=== PATIENT | male | born 1995 | race American Indian/Alaskan Native ===

== ENCOUNTER 2016-10-08 06:49 | Emergency (ER) | payer OTHER ==
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
[2016-10-08] MEDS ORDERED: Propofol 200 MG/20 ML SDV IV ONE (07:07)
[2016-10-08] MEDS ORDERED: Succinylcholine 200 MG/10 ML MDV IV ONE (07:07)
[2016-10-08] MEDS ORDERED: Rocuronium 50 MG/5 ML Vial IV ONE (07:07)
[2016-10-08 07:20] LABS: CHLORIDE,CL 108 mmol/L (101-111); SODIUM,NA 143 mmol/L (135-145)
[2016-10-08] MEDS ORDERED: Midazolam 1 MG/ML 2 ML SDV ONE ×2 (07:46)
[2016-10-08] MEDS ORDERED: Iopamidol 612 MG/ML 100 ML Bottle IVPUSH ONE (08:00)
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
== END 2016-10-08 09:06 | disposition other institution (70) ==
LOC: DL.ED 06:49
DX: S81.012A Laceration without foreign body, left knee, initial encounter (principal); S81.011A Laceration without foreign body, right knee, initial encounter; S31.010A Laceration without foreign body of lower back and pelvis without penetration into retroperitoneum, initial encounter; S20.229A Contusion of unspecified back wall of thorax, initial encounter; S20.312A Abrasion of left front wall of thorax, initial encounter; V89.2XXA Person injured in unspecified motor-vehicle accident, traffic, initial encounter
CPT/HCPCS: 31500; 36415; 51702; 70450; 71010; 71260; 72125; 72128; 72131; 74177; 80053; 80305; 81001; 82150; 83690; 85025; 96360; 96361; 99285; G0480; Q9967; J0330; J2250; J2704

== ENCOUNTER 2016-11-07 01:16 | Emergency (ER) | payer OTHER ==
[2016-11-07] MEDS ORDERED: Lidocaine 1% 30 ML SDV INJECT ONE (01:22)
[2016-11-07 01:24] VITALS: BP 136/90
--- NOTE | 2016-11-07 01:28 | EDM.PDOC ---
ED HPI GENERAL MEDICAL PROBLEM - General Chief Complaint: Laceration Stated Complaint: HAND GASHED OPEN Time Seen by Provider: 11/07/16 01:23 Source of Information: Reports: Patient History Limitations: Reports: No Limitations - History of Present Illness INITIAL COMMENTS - FREE TEXT/NARRATIVE: cut TUNA PURSE SEINER Treatments TUNA PURSE SEINER: Reports: Dressing(s) Left 2-Index finger Pain Score (Numeric/FACES): 3 - Related Data Allergies Allergy/AdvReac Type Severity Reaction Status Date / Time No Known Allergies Allergy Verified 11/07/16 01:20 Home Meds: Home Meds . [No Known Home Meds] 07/11/13 [History] Past Medical History - Past Health History Medical/Surgical History: Denies Medical/Surgical History Social & Family History - Family History Family Medical History: Noncontributory - Tobacco Use Smoking Status *Q: Never Smoker - Alcohol Use Days Per Week of Alcohol Use: 1 Number of Drinks Per Day: 2 Total Drinks Per Week: 2 - Recreational Drug Use Recreational Drug Use: No ED ROS GENERAL - Review of Systems Review Of Systems: ROS reveals no pertinent complaints other than HPI. ED EXAM, SKIN/RASH Exam: See Below Exam Limited By: No Limitations General Appearance: Alert, WD/WN, No Apparent Distress Ears: Hearing Grossly Normal Throat/Mouth: Normal Voice, No Airway Compromise Head: Atraumatic Neck: Non-Tender, Full Range of Motion Respiratory/Chest: No Respiratory Distress Cardiovascular: Regular Rate, Rhythm GI/Abdominal: Soft, Non-Tender Extremities: Other (left index lac', flexion-extension intact, snesation intact) Neurological: Alert, Oriented, Normal Cognition, Normal Gait, No Motor/Sensory Deficits Psychiatric: Normal Affect, Normal Mood Skin: Warm, Dry Location, Skin: Upper Extremity, Left Lymphatic: No Adenopathy ED SKIN PROCEDURES - Laceration/Wound Repair Left Finger Lac/wound length in cm: 2 (index) Appearance: subcutaneous, linear, clean Distal NVT: neuro & vascular intact, no tendon injury Anesthetic Type: local Local anesthesia - Lidocaine (Xylocaine): 1% plain Local anesthetic volume: 5cc Skin prep: chlorhexidine (hibiciens) Saline irrigation (cc's): 20 Exploration/Debridement/Repair: wound explored, no foreign material found Closed with: sutures Suture size: 3-0 Suture type: interrupted Sterile dressing applied: nurse Tetanus status addressed: Yes Complications: No Course - Vital Signs Last Recorded V/S: Last Vital Signs Temp 36.6 C 11/07/16 01:23 Pulse 97 11/07/16 01:23 Resp 20 11/07/16 01:23 BP 136/90 11/07/16 01:23 Pulse Ox 99 11/07/16 01:23 - Orders/Labs/Meds Orders: Active Orders 24 hr Category Date Time Status Acetaminophen/HYDROcodone [[place] 325-10 MG] Med 11/07/16 01:52 Once 1 tab PO ONETIME ONE Meds: Medications Discontinued Medications Generic Name Dose Route Start Last Admin Trade Name Charmaine PRN Reason Stop Dose Admin Lidocaine HCl 30 ml 11/07/16 01:22 Xylocaine-Mpf 1% INJECT 11/07/16 01:23 ONETIME ONE Departure - Departure Time of Disposition: 01:53 Disposition: Home, Self-Care 01 Condition: good Clinical Impression: Finger laceration Qualifiers: Encounter type: initial encounter Qualified Code(s): S61.219A - Laceration without foreign body of unspecified finger without damage to nail, initial encounter - Discharge Information Instructions: Stitches, Juan David, or Adhesive Wound Closure, [id number] Forms: ED Department Discharge Additional Instructions: 1) keep clean dry covered 2) wound check 2 days 3) suture removal 10 days 4) must recheck if have problem in bending or straightening finger - My Orders Last 24 Hours: My Active Orders 11/07/16 01:52 Acetaminophen/HYDROcodone [[place] 325-10 MG] 1 tab PO ONETIME ONE - Assessment/Plan Last 24 Hours: My Active Orders 11/07/16 01:52 Acetaminophen/HYDROcodone [[place] 325-10 MG] 1 tab PO ONETIME ONE
[2016-11-07] MEDS ORDERED: Acetaminophen/HYDROcodone 325-10 MG Tab PO ONE (01:52)
== END 2016-11-07 02:07 | disposition home or self-care (01) ==
LOC: DL.ED 01:16
DX: S61.211A Laceration without foreign body of left index finger without damage to nail, initial encounter (principal); X58.XXXA Exposure to other specified factors, initial encounter
CPT/HCPCS: 12001; 99283; A9270

== ENCOUNTER 2018-02-07 00:51 | Emergency (ER) | payer OTHER ==
[2018-02-07 01:28] LABS: ANION GAP 12.7; CHLORIDE,CL 105 mmol/L (101-111); SODIUM,NA 141 mmol/L (135-145)
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
[2018-02-07 03:10] VITALS: BP 141/73
--- NOTE | 2018-02-11 10:40 | EKG ---
02/07/2018 - ERI KIDD - TIME: 1:15 a.m. FINDINGS: Sinus rhythm at 91, inferior Q-waves, probably normal variation. [facility] /[id number]
== END 2018-02-07 03:06 | disposition home or self-care (01) ==
LOC: DL.ED 00:51
DX: S06.0X9A Concussion with loss of consciousness of unspecified duration, initial encounter (principal); S80.01XA Contusion of right knee, initial encounter; S80.02XA Contusion of left knee, initial encounter; S40.811A Abrasion of right upper arm, initial encounter; V59.9XXA Occupant (driver) (passenger) of pick-up truck or van injured in unspecified traffic accident, initial encounter
CPT/HCPCS: 36415; 70450; 71250; 72125; 73560; 74176; 80053; 85025; 85610; 85730; 86850; 86900; 86901; 99285; G0480

== ENCOUNTER 2021-11-28 20:16 | Emergency (ER) | payer OTHER ==
[2021-11-28] MEDS ORDERED: Sodium Chloride 0.9% 1,000 ML IV ONE (20:26)
[2021-11-28] MEDS ORDERED: Ketorolac 30 MG/ML SDV IVPUSH ONE (20:33)
[2021-11-28] MEDS ORDERED: Ondansetron 4 MG/2 ML SDV IVPUSH ONE (20:33)
[2021-11-28 21:03] LABS: CHLORIDE,CL 99 mmol/L (98-107); SODIUM,NA 138 mmol/L (136-145)
[2021-11-28 21:08] LABS: ESTIMATED GFR > 60
[2021-11-28] MEDS ORDERED: fentaNYL 100 MCG/2 ML SDV IVPUSH ONE (21:18)
[2021-11-28 21:53] VITALS: BP 129/61; PULSE 76
== END 2021-11-28 23:06 ==
LOC: DL.ED 20:16
DX: S06.5X9A Traumatic subdural hemorrhage with loss of consciousness of unspecified duration, initial encounter (principal); S06.6X9A Traumatic subarachnoid hemorrhage with loss of consciousness of unspecified duration, initial encounter; Z20.822 Contact with and (suspected) exposure to COVID-19; W18.30XA Fall on same level, unspecified, initial encounter
CPT/HCPCS: 36415; 70450; 72125; 80053; 80307; 82150; 83605; 85025; 86618; 86788; 87040; 96361; 96374; 96375; 99285; 99285-25; J1885; J2405; J3010; J7030; U0002

== ENCOUNTER 2021-12-01 18:44 | Emergency (ER) | payer OTHER ==
[2021-12-01 19:19] VITALS: BP 132/83; PULSE 60
[2021-12-01 20:01] LABS: AMPHETAMINES,URINE NEGATIVE (NEGATIVE); BARBITURATES,URINE NEGATIVE (NEGATIVE); BENZODIAZEPINE,URINE NEGATIVE (NEGATIVE); MDMA (ECSTASY), URINE NEGATIVE (NEGATIVE); METHADONE,URINE NEGATIVE (NEGATIVE); METHAMPHETAMINES,URINE NEGATIVE (NEGATIVE); OPIATES,URINE NEGATIVE (NEGATIVE); OXYCODONE,URINE POSITIVE (NEGATIVE); PHENCYCLIDINE,URINE NEGATIVE (NEGATIVE); TCA,URINE NEGATIVE (NEGATIVE)
[2021-12-01 20:02] LABS: ANION GAP 8.8 mEq/L (7-13); CHLORIDE,CL 99 mmol/L (98-107); SODIUM,NA 135 mmol/L (136-145)
[2021-12-01 20:07] LABS: ESTIMATED GFR 93 mL/min (>=60)
[2021-12-01] MEDS ORDERED: Ondansetron 4 MG/2 ML SDV IVPUSH ONE (20:32)
[2021-12-01] MEDS ORDERED: HYDROmorphone 1 MG/ML Syringe IVPUSH ONE (20:33)
[2021-12-01] MEDS ORDERED: Acetaminophen/HYDROcodone 325-10 MG Tab PO ONE (22:22)
== END 2021-12-01 22:22 | disposition left against medical advice (07) ==
LOC: DL.ED 18:44
DX: R51.9 Headache, unspecified (principal); F07.81 Postconcussional syndrome; Z87.820 Personal history of traumatic brain injury
CPT/HCPCS: 36415; 80053; 80305; 80307; 81003; 85025; 96374; 96375; 99284; J1170; J2405

== ENCOUNTER 2021-12-03 06:51 | Emergency (ER) | payer OTHER ==
[2021-12-03 07:32] VITALS: BP 129/82; PULSE 80
[2021-12-03] MEDS ORDERED: HYDROmorphone 1 MG/ML Syringe IVPUSH ONE (07:35)
[2021-12-03 08:13] LABS: ANION GAP 11.8 mEq/L (7-13); CHLORIDE,CL 100 mmol/L (98-107); SODIUM,NA 139 mmol/L (136-145)
[2021-12-03 08:16] LABS: ESTIMATED GFR 103 mL/min (>=60)
[2021-12-03] MEDS ORDERED: Ketorolac 30 MG/ML SDV IVPUSH ONE (08:57)
== END 2021-12-03 09:56 | disposition home or self-care (01) ==
LOC: DL.ED 06:51
DX: R42 Dizziness and giddiness (principal); F07.81 Postconcussional syndrome; Z86.16 Personal history of COVID-19
CPT/HCPCS: 36415; 70450; 80053; 80307; 85025; 96374; 96375; 99284; J1170; J1885

== ENCOUNTER 2024-01-28 14:53 | Emergency (ER) | payer SELFPAY ==
[2024-01-28 15:32] VITALS: BP 151/77; PULSE 100
[2024-01-28] MEDS: cefTRIAXone 1 GM, Lidocaine 1% 2.1 ML IM ONE (16:03)
[2024-01-28] MEDS: Penicillin G Benzathine/Procaine 600-600 1.2 Millunits/2 ML Syringe IM ONE (16:04)
[2024-01-28] MEDS: Dexamethasone 4 MG/ML SDV IM ONE (16:08)
== END 2024-01-28 16:12 | disposition home or self-care (01) ==
LOC: DL.ED 14:53
DX: J03.00 Acute streptococcal tonsillitis, unspecified (principal); Z79.899 Other long term (current) drug therapy
CPT/HCPCS: 87430; 87635; 87804; 96372; 99282; 99283; J0696; J1100; J3490; U0002

== ENCOUNTER 2024-07-22 06:13 | Observation (INO) | payer OTHER ==
[2024-07-22] MEDS: Promethazine 25 MG/ML SDV IM ONE (06:56)
[2024-07-22] MEDS: Iopamidol 612 MG/ML 100 ML Bottle IVPUSH ONE (07:26)
[2024-07-22 07:45] LABS: BASOPHILS PERCENT AUTO 0.1 % (0.0-1.0); EOSINOPHILS PERCENT AUTO 1.1 % (1.0-3.0); HEMATOCRIT 49.2 % (40.0-54.0); HEMOGLOBIN 15.8 g/dL (14.0-18.0); LYMPHOCYTES PERCENT AUTO 5.4 % (20.5-50.1); MEAN CORPUSCULAR HEMOGLOBIN 27.8 pg (27.0-34.0); MEAN CORPUSCULAR HGB CONC 32.1 g/dL (33.0-35.0); MEAN CORPUSCULAR VOLUME 86.5 fL (80-100); MONOCYTES PERCENT AUTO 6.6 % (2-8); NEUTROPHILS PERCENT AUTO 86.8 % (42.2-75.2); PLATELET COUNT,PLT 238 10^3/uL (150-450); RED BLOOD CELL COUNT 5.69 10^6/uL (4.6-6.2); WHITE BLOOD CELL COUNT,WBC 11.1 10^3/uL (5.0-10.0)
[2024-07-22] MEDS: Sodium Chloride 0.9% 1,000 ML IV ONE (08:44)
[2024-07-22 08:45] LABS: ALANINE AMINOTRANSFERASE,ALT 49 U/L (16-63); ALBUMIN 3.9 g/dL (3.4-5.0); ALKALINE PHOSPHATASE 110 U/L (46-116); ANION GAP 10.3 mEq/L (7-13); ASPARTATE AMNIOTRANSFERASE,AST 28 U/L (15-37); BILIRUBIN TOTAL 1.1 mg/dL (0.2-1.0); BLOOD UREA NITROGEN,BUN 23 mg/dL (7-18); BUN/CREATININE RATIO 24.5 (No establ ref range); CALCIUM 8.7 mg/dL (8.5-10.1); CARBON DIOXIDE,CO2 32 mmol/L (21-32); CHLORIDE,CL 105 mmol/L (98-107); CREATININE 0.94 mg/dL (0.70-1.30); EST CRCL DRUG DOSING (CG) 115.95 mL/min; GLUCOSE RANDOM 128 mg/dL (70-99); LIPASE 18 U/L (16-77); POTASSIUM,K 4.3 mmol/L (3.5-5.1); PROTEIN TOTAL,TP 7.7 g/dL (6.4-8.2); SODIUM,NA 143 mmol/L (136-145)
[2024-07-22 08:46] LABS: ESTIMATED GFR 113 mL/min (>=60); ETHANOL BLOOD MEDICAL < 3 mg/dL (0)
[2024-07-22] MEDS: Famotidine 20 MG/2 ML SDV IVPUSH ONE (08:46)
[2024-07-22] MEDS: Lactated Ringers 1,000 ML IV SCH (09:56)
[2024-07-22 10:19] LABS: LACTIC ACID 1.2 mmol/L (0.4-2.0)
[2024-07-22 10:42] LABS: APPEARANCE,URINE CLEAR (CLEAR); BILIRUBIN,URINE NEGATIVE (NEGATIVE); COLOR,URINE YELLOW (YELLOW); GLUCOSE,URINE NEGATIVE (NEGATIVE); KETONES,URINE NEGATIVE (NEGATIVE); LEUKOCYTE ESTERASE,URINE NEGATIVE (NEGATIVE); NITRITE,URINE NEGATIVE (NEGATIVE); OCCULT BLOOD,URINE NEGATIVE (NEGATIVE); PROTEIN,URINE NEGATIVE (NEGATIVE); UROBILINOGEN,URINE 0.2 mg/dL (0.2-1.0)
[2024-07-22] MEDS ORDERED: Ketorolac 30 MG/ML SDV IVPUSH PRN (10:53)
[2024-07-22] MEDS ORDERED: Sodium Chloride 0.9% 10 ML Syringe FLUSH PRN (10:53)
[2024-07-22] MEDS ORDERED: Ondansetron 4 MG/2 ML SDV IVPUSH PRN (10:53)
[2024-07-22] MEDS ORDERED: Acetaminophen 325 MG Tab PO PRN (10:53)
[2024-07-22 13:09] LABS: AMPHETAMINES,URINE POSITIVE (NEGATIVE); BARBITURATES,URINE NEGATIVE (NEGATIVE); BENZODIAZEPINE,URINE NEGATIVE (NEGATIVE); MDMA (ECSTASY), URINE NEGATIVE (NEGATIVE); METHADONE,URINE NEGATIVE (NEGATIVE); METHAMPHETAMINES,URINE POSITIVE (NEGATIVE); OPIATES,URINE NEGATIVE (NEGATIVE); OXYCODONE,URINE NEGATIVE (NEGATIVE); PHENCYCLIDINE,URINE NEGATIVE (NEGATIVE); TCA,URINE NEGATIVE (NEGATIVE)
[2024-07-22] MEDS: Pantoprazole 40 MG Vial IVPUSH SCH (16:49)
[2024-07-23] MEDS: Sodium Chloride 0.9% 10 ML Syringe FLUSH SCH (00:32)
[2024-07-23 06:14] LABS: BASOPHILS PERCENT AUTO 0.2 % (0.0-1.0); EOSINOPHILS PERCENT AUTO 4.2 % (1.0-3.0); HEMATOCRIT 44.3 % (40.0-54.0); HEMOGLOBIN 14.3 g/dL (14.0-18.0); LYMPHOCYTES PERCENT AUTO 27.8 % (20.5-50.1); MEAN CORPUSCULAR HEMOGLOBIN 28.1 pg (27.0-34.0); MEAN CORPUSCULAR HGB CONC 32.3 g/dL (33.0-35.0); MEAN CORPUSCULAR VOLUME 87.2 fL (80-100); MONOCYTES PERCENT AUTO 15.5 % (2-8); NEUTROPHILS PERCENT AUTO 52.3 % (42.2-75.2); PLATELET COUNT,PLT 184 10^3/uL (150-450); RED BLOOD CELL COUNT 5.08 10^6/uL (4.6-6.2); WHITE BLOOD CELL COUNT,WBC 4.7 10^3/uL (5.0-10.0)
[2024-07-23 06:42] LABS: A/G RATIO 0.85; ALBUMIN 2.9 g/dL (3.4-5.0); ANION GAP 9.6 mEq/L (7-13); BILIRUBIN TOTAL 1.1 mg/dL (0.2-1.0); BUN/CREATININE RATIO 14.3 (No establ ref range); C-REACTIVE PROTEIN 3.02 ng/dL (<=0.50); CALCIUM 8.1 mg/dL (8.5-10.1); CREATININE 0.84 mg/dL (0.70-1.30); EST CRCL DRUG DOSING (CG) 129.76 mL/min; MAGNESIUM 1.8 mg/dL (1.8-2.4); POTASSIUM,K 3.6 mmol/L (3.5-5.1); PROTEIN TOTAL,TP 6.3 g/dL (6.4-8.2)
[2024-07-23] MEDS: Melatonin 3 MG Tab PO PRN (21:09)
[2024-07-24 06:13] LABS: BASOPHILS PERCENT AUTO 0.1 % (0.0-1.0); EOSINOPHILS PERCENT AUTO 4.3 % (1.0-3.0); HEMATOCRIT 45.1 % (40.0-54.0); HEMOGLOBIN 14.6 g/dL (14.0-18.0); LYMPHOCYTES PERCENT AUTO 22.7 % (20.5-50.1); MEAN CORPUSCULAR HEMOGLOBIN 27.9 pg (27.0-34.0); MEAN CORPUSCULAR HGB CONC 32.4 g/dL (33.0-35.0); MEAN CORPUSCULAR VOLUME 86.2 fL (80-100); MONOCYTES PERCENT AUTO 13.8 % (2-8); NEUTROPHILS PERCENT AUTO 59.1 % (42.2-75.2); PLATELET COUNT,PLT 187 10^3/uL (150-450); RED BLOOD CELL COUNT 5.23 10^6/uL (4.6-6.2); WHITE BLOOD CELL COUNT,WBC 8.5 10^3/uL (5.0-10.0)
[2024-07-24 06:40] LABS: ANION GAP 5.8 mEq/L (7-13); BILIRUBIN TOTAL 0.4 mg/dL (0.2-1.0); BUN/CREATININE RATIO 11.8 (No establ ref range); CALCIUM 8.4 mg/dL (8.5-10.1); CREATININE 0.85 mg/dL (0.70-1.30); EST CRCL DRUG DOSING (CG) 128.23 mL/min; POTASSIUM,K 3.8 mmol/L (3.5-5.1); PROTEIN TOTAL,TP 6.5 g/dL (6.4-8.2)
[2024-07-24 06:46] LABS: A/G RATIO 0.86
[2024-07-24 07:42] VITALS: BP 105/52; PULSE 83
== END 2024-07-24 09:32 | disposition home or self-care (01) ==
LOC: DL.ED 06:13 → UNDOADMOB 10:20 → DL.MS 10:20
PROVIDERS: ADMIT Internal Medicine; ATTEND Internal Medicine
DX: K52.9 Noninfective gastroenteritis and colitis, unspecified (principal); R11.10 Vomiting, unspecified
CPT/HCPCS: 36415; 74177; 80053; 80305-QW; 80307; 81003; 83605; 83690; 83735; 84484; 85025; 86140; 87428-QW; 93005; 93010; 96361; 96372; 96374; 96375; 96376; 99222; 99232; 99238; 99284; 99285-25; A9270-GY; G0378; J2470; J2550; J7030; J7120; Q9967

== ENCOUNTER 2024-11-29 07:49 | Emergency (ER) | payer SELFPAY ==
[2024-11-29 08:16] LABS: BASOPHILS PERCENT AUTO 0.2 % (0.0-1.0); EOSINOPHILS PERCENT AUTO 0.6 % (1.0-3.0); HEMATOCRIT 47.9 % (40.0-54.0); HEMOGLOBIN 16.1 g/dL (14.0-18.0); MEAN CORPUSCULAR HEMOGLOBIN 28.8 pg (27.0-34.0); MEAN CORPUSCULAR HGB CONC 33.6 g/dL (33.0-35.0); MEAN CORPUSCULAR VOLUME 85.5 fL (80-100); MONOCYTES PERCENT AUTO 10.8 % (2-8); NEUTROPHILS PERCENT AUTO 74.4 % (42.2-75.2); PLATELET COUNT,PLT 238 10^3/uL (150-450); WHITE BLOOD CELL COUNT,WBC 13.1 10^3/uL (5.0-10.0)
[2024-11-29] MEDS: Sodium Chloride 0.9% 1,000 ML IV SCH (08:19)
[2024-11-29 08:32] LABS: ANION GAP 13.2 mEq/L (7-13); CALCIUM 9.1 mg/dL (8.5-10.1); CREATININE 0.91 mg/dL (0.70-1.30); EST CRCL DRUG DOSING (CG) 119.78 mL/min; POTASSIUM,K 4.2 mmol/L (3.5-5.1)
[2024-11-29] MEDS: Ondansetron 4 MG/2 ML SDV IVPUSH ONE (08:42)
[2024-11-29] MEDS: HYDROmorphone 1 MG/ML Syringe IVPUSH ONE (08:42)
[2024-11-29] MEDS: Iopamidol 612 MG/ML 100 ML Bottle IVPUSH ONE (08:44)
== END 2024-11-29 09:40 | disposition home or self-care (01) ==
LOC: DL.ED 07:49
DX: S22.42XA Multiple fractures of ribs, left side, initial encounter for closed fracture (principal); Z86.16 Personal history of COVID-19; V48.5XXA Car driver injured in noncollision transport accident in traffic accident, initial encounter; Y93.89 Activity, other specified
CPT/HCPCS: 36415; 71260; 74177; 80048; 85025; 96361; 96374; 96375; 99284; J1171; J2405; J7030; Q9967